=== PATIENT | male | born 1980 | race African-American/Black ===

== ENCOUNTER 2019-07-20 07:20 | Emergency (ER) | payer OTHER ==
[2019-07-20 08:06] LABS: #Eosinphils 0.1 thou/uL (0.0-0.7); #Lymphocytes 1.3 thou/uL (1.20-3.40); #Monocytes 0.9 thou/uL (0.11-0.59); #Neutrophils 6.1 thou/uL (1.40-6.50); %Basophils 0.6 % (0.0-1.0); %Lymphocytes 15.5 % (21.0-51.0); %Neutrophils 71.9 % (42.0-75.0); Hemoglobin 15.1 g/dL (14.0-18.0); Mean Corpuscular HGB CONC 33.7 g/dL (32.0-36.0); Mean Corpuscular Hemoglobin 32.3 pg (27.0-31.0); Mean Corpuscular Volume 95.8 fL (78.0-98.0); Mean Platelet Volume 7.4 fL (7.4-10.4); Platelet Count 286 thou/uL (130-400); RBC Distribution Width 11.9 % (11.5-14.5); Red Blood Cell (RBC) Count 4.68 mill/uL (4.70-6.10); White Blood Cell (WBC) Count 8.5 thou/uL (4.8-10.8)
[2019-07-20 08:30] LABS: ALT (SGPT) 16 U/L (8-55); AST (SGOT) 19 U/L (5-34); Albumin 4.5 g/dL (3.5-5.0); Alkaline Phosphatase 104 U/L (40-110); Anion Gap 10 mmol/L (10-20); BUN (Urea Nitrogen) 11 mg/dL (8.9-20.6); Bilirubin, Total 0.4 mg/dL (0.2-1.2); Calc. Creatinine Clearance 0 mL/min (70-130); Calcium 9.9 mg/dL (7.8-10.44); Carbon Dioxide 32 mmol/L (22-29); Chloride 102 mmol/L (98-107); Estimated GFR-MDRD Greater than 90; Globulin 2.4 g/dL (2.4-3.5); Potassium 4.4 mmol/L (3.5-5.1); Protein, Total 6.9 g/dL (6.0-8.3); Sodium 140 mmol/L (136-145)
[2019-07-20 08:37] LABS: Glucose 56 mg/dL (70-105)
[2019-07-20 09:30] LABS: Bilirubin Negative (Negative); Blood, Urine Negative (Negative); Clarity Clear (Clear); Glucose, Urine (Dipstick) 30 mg/dL (Negative); Leukocyte Negative Leu/uL (Negative); Nitrite Negative (Negative); Protein, Urine (Dipstick) Negative (Neg-Trace); Urobilinogen Normal mg/dL (Less than 2)
== END 2019-07-20 09:50 | disposition home or self-care (01) ==
LOC: ERS 07:20
DX: E10.649 Type 1 diabetes mellitus with hypoglycemia without coma (principal); K21.9 Gastro-esophageal reflux disease without esophagitis; I10 Essential (primary) hypertension; Z79.899 Other long term (current) drug therapy
CPT/HCPCS: 36415; 36416; 80053; 81003; 85025; 99285

== ENCOUNTER 2020-04-17 18:56 | Emergency (ER) | payer OTHER ==
[2020-04-17] MEDS ORDERED: Ondansetron ODT 4 MG TAB ONE (20:29)
== END 2020-04-17 22:05 | disposition home or self-care (01) ==
LOC: ERS 18:56
DX: R11.2 Nausea with vomiting, unspecified (principal); Z79.4 Long term (current) use of insulin; K21.9 Gastro-esophageal reflux disease without esophagitis; E10.9 Type 1 diabetes mellitus without complications; I10 Essential (primary) hypertension; F17.210 Nicotine dependence, cigarettes, uncomplicated
CPT/HCPCS: 99283; Q0162

== ENCOUNTER 2022-01-15 16:26 | Inpatient (IN) | payer BC ==
[2022-01-15] MEDS ORDERED: Ondansetron PF 4 MG/2 ML Vial ONE ×3 (16:46→23:24)
[2022-01-15 17:06] LABS: #Lymphocytes 1.7 thou/uL (1.20-3.40); #Monocytes 0.9 thou/uL (0.11-0.59); #Neutrophils 11.5 thou/uL (1.40-6.50); %Eosinophils 0.1 % (0.0-10.0); %Lymphocytes 12.3 % (21.0-51.0); %Monocytes 6.6 % (0.0-10.0); Hemoglobin 15.6 g/dL (14.0-18.0); Mean Corpuscular HGB CONC 33.8 g/dL (32.0-36.0); Mean Corpuscular Hemoglobin 32.7 pg (27.0-31.0); Mean Corpuscular Volume 96.7 fL (78.0-98.0); Mean Platelet Volume 7.9 fL (7.4-10.4); Platelet Count 276 thou/uL (130-400); RBC Distribution Width 11.7 % (11.5-14.5); Red Blood Cell (RBC) Count 4.77 mill/uL (4.70-6.10); White Blood Cell (WBC) Count 14.2 thou/uL (4.8-10.8)
[2022-01-15 17:27] LABS: ALT (SGPT) 21 U/L (8-55); AST (SGOT) 20 U/L (5-34); Albumin 4.8 g/dL (3.5-5.0); Alkaline Phosphatase 139 U/L (40-110); Anion Gap 22 mmol/L (10-20); BUN (Urea Nitrogen) 23 mg/dL (8.9-20.6); Bilirubin, Total 0.8 mg/dL (0.2-1.2); Calc. Creatinine Clearance 0 mL/min (70-130); Carbon Dioxide 22 mmol/L (22-29); Chloride 95 mmol/L (98-107); Estimated GFR 53; Globulin 2.7 g/dL (2.4-3.5); Potassium 4.4 mmol/L (3.5-5.1); Protein, Total 7.5 g/dL (6.0-8.3); Sodium 135 mmol/L (136-145)
[2022-01-15 17:36] LABS: Glucose 639 mg/dL (70-105)
[2022-01-15] MEDS ORDERED: Insulin Regular 300 UNITS/3 ML VIAL ONE ×3 (18:53→22:57)
[2022-01-15] MEDS ORDERED: NS 0.9% w/ 20 MEQ KCL 1,000 ML ONE (20:22)
[2022-01-15] MEDS ORDERED: Dextrose 50% Abboject 50 ML SYRINGE SLOW IVP PRN (20:24)
[2022-01-15] MEDS ORDERED: Insulin Regular 300 UNITS/3 ML VIAL IVP SCH (20:30)
[2022-01-15] MEDS ORDERED: HUMULIN R 100 UNITS in Sodium Chloride 0.9% 100 ML IVPB SCH (20:30)
[2022-01-15] MEDS ORDERED: NS 0.9% w/ 20 MEQ KCL 1,000 ML/1,000 ML BAG IV PRN ×2 (20:30)
[2022-01-15] MEDS ORDERED: Dextrose 5% in Water 1,000 ML IV PRN (20:30)
[2022-01-15] MEDS ORDERED: ADD ELECTROLYTE REPLACEMENT SET TO PROFILE FS SCH (20:30)
[2022-01-15] MEDS ORDERED: Sodium Chloride 0.9% 1,000 ML IV PRN ×4 (20:30)
[2022-01-15] MEDS ORDERED: Dextrose 5 %-0.45 % NaCl 1,000 ML IV PRN (20:30)
[2022-01-15] MEDS ORDERED: INSULIN REGULAR IN 0.9 % NACL 100 UNIT/100 ML BAG ONE (20:34)
[2022-01-15 20:56] LABS: Actual Bicarbonate (HCO3v) 23 mEq/L (22-28); Analyzer IN Cardio ER; Base Excess -3.6 mEq/L (-2.0 to +3.0); Calcium, Ionized (venous) 1.16 mmol/L (1.16-1.32); Chloride (VBG) 104 mmol/L (98-106); Hemoglobin (Hb) 15.4 g/dL (13.2-17.3); Potassium (VBG) 3.94 mmol/L (3.70-5.30); Sodium 139.4 mmol/L (133-146); pH (venous) 7.32 (7.32-7.43)
[2022-01-15 21:38] LABS: Anion Gap 24 mmol/L (10-20); BUN (Urea Nitrogen) 24 mg/dL (8.9-20.6); Calc. Creatinine Clearance 0 mL/min (70-130); Carbon Dioxide 22 mmol/L (22-29); Chloride 94 mmol/L (98-107); Estimated GFR 53; Potassium 4.6 mmol/L (3.5-5.1); Sodium 135 mmol/L (136-145)
[2022-01-15] MEDS ORDERED: Ondansetron PF 4 MG/2 ML Vial IVP PRN (21:53)
[2022-01-15] MEDS ORDERED: Acetaminophen 325 MG TAB PO PRN (21:53)
[2022-01-15 22:15] LABS: Glucose 316 mg/dL (70-105)
[2022-01-16] MEDS: D5 1/2 NS w/20 mEq KCL 1,000 ML IV PRN ×2 (01:21→04:53)
[2022-01-16 01:24] LABS: Phosphorus 3.2 mg/dL (2.3-4.7)
[2022-01-16 03:43] VITALS: BMI 22.6
[2022-01-16 04:08] LABS: Hemoglobin A1c 9.3 % (4.0-6.0)
[2022-01-16 04:21] LABS: Anion Gap 14 mmol/L (10-20); BUN (Urea Nitrogen) 17 mg/dL (8.9-20.6); Calc. Creatinine Clearance 84 mL/min (70-130); Calcium 8.4 mg/dL (7.8-10.44); Carbon Dioxide 22 mmol/L (22-29); Chloride 108 mmol/L (98-107); Estimated GFR 89; Glucose 224 mg/dL (70-105); Magnesium 1.9 mg/dL (1.6-2.6); Potassium 4.1 mmol/L (3.5-5.1); Sodium 140 mmol/L (136-145)
[2022-01-16 04:22] LABS: #Lymphocytes 1.4 thou/uL (1.20-3.40); #Monocytes 0.9 thou/uL (0.11-0.59); #Neutrophils 10.3 thou/uL (1.40-6.50); %Eosinophils 0.1 % (0.0-10.0); %Lymphocytes 10.9 % (21.0-51.0); %Monocytes 7.3 % (0.0-10.0); %Neutrophils 81.8 % (42.0-75.0); Hemoglobin 13.4 g/dL (14.0-18.0); Mean Corpuscular HGB CONC 35.1 g/dL (32.0-36.0); Mean Corpuscular Hemoglobin 33.3 pg (27.0-31.0); Mean Corpuscular Volume 95.1 fL (78.0-98.0); Mean Platelet Volume 7.7 fL (7.4-10.4); Platelet Count 235 thou/uL (130-400); RBC Distribution Width 11.7 % (11.5-14.5); Red Blood Cell (RBC) Count 4.01 mill/uL (4.70-6.10); White Blood Cell (WBC) Count 12.7 thou/uL (4.8-10.8)
[2022-01-16 04:24] LABS: Phosphorus 1.4 mg/dL (2.3-4.7)
[2022-01-16] MEDS ORDERED: Magnesium 2 GM/50 ML(in water) 2 GM in Premix Bag 1 BAG IVPB SCH (04:30)
[2022-01-16] MEDS ORDERED: Electrolyte Replacement Protocol FS PRN (04:30)
[2022-01-16 04:33] VITALS: TEMP 98.4
[2022-01-16] MEDS: PHOS-NAK 1 PKT PACK PO SCH ×2 (04:54→08:35)
[2022-01-16 06:07] LABS: Bacteria/HPF None Seen HPF (None Seen); Bilirubin Negative (Negative); Blood, Urine Negative (Negative); Clarity Clear (Clear); Glucose, Urine (Dipstick) Greater than 1000 mg/dL (Negative); Ketone, Urine 20 mg/dL (Negative); Leukocyte Negative Leu/uL (Negative); Nitrite Negative (Negative); Protein, Urine (Dipstick) Negative (Neg-Trace); RBC/HPF 0-3 HPF (0-3); Specific Gravity, Urine 1.029 (1.002-1.036); Squamous Epithelial 0-3 HPF (0-3); Urobilinogen Normal mg/dL (Less than 2); WBC/HPF 0-3 HPF (0-3)
[2022-01-16 06:12] LABS: Urine Culture Reflex No No
[2022-01-16 07:52] LABS: Anion Gap 12 mmol/L (10-20); BUN (Urea Nitrogen) 14 mg/dL (8.9-20.6); Calc. Creatinine Clearance 91 mL/min (70-130); Calcium 8.2 mg/dL (7.8-10.44); Carbon Dioxide 22 mmol/L (22-29); Chloride 107 mmol/L (98-107); Estimated GFR 98; Glucose 126 mg/dL (70-105); Potassium 4.2 mmol/L (3.5-5.1); Sodium 137 mmol/L (136-145)
[2022-01-16] MEDS ORDERED: Heparin 5,000 UNITS/ML VIAL SC SCH (09:00)
[2022-01-16 11:20] LABS: Anion Gap 14 mmol/L (10-20); BUN (Urea Nitrogen) 13 mg/dL (8.9-20.6); Calc. Creatinine Clearance 83 mL/min (70-130); Calcium 8.5 mg/dL (7.8-10.44); Carbon Dioxide 24 mmol/L (22-29); Chloride 104 mmol/L (98-107); Estimated GFR 88; Glucose 213 mg/dL (70-105); Potassium 4.3 mmol/L (3.5-5.1); Sodium 138 mmol/L (136-145)
== END 2022-01-16 14:27 | disposition home or self-care (01) | DRG 638 ==
LOC: ERS 16:26 → IMCU/EMU 21:34
PROVIDERS: ADMIT Internal Medicine; ATTEND Internal Medicine
DX: E10.10 Type 1 diabetes mellitus with ketoacidosis without coma (principal); N17.9 Acute kidney failure, unspecified; Z20.822 Contact with and (suspected) exposure to COVID-19; I10 Essential (primary) hypertension; F17.210 Nicotine dependence, cigarettes, uncomplicated; D72.829 Elevated white blood cell count, unspecified; Z79.899 Other long term (current) drug therapy; Z79.4 Long term (current) use of insulin; Z98.890 Other specified postprocedural states; Z83.3 Family history of diabetes mellitus
CPT/HCPCS: 36415; 36416; 80048; 80053; 82010; 82805; 83036; 83735; 83930; 84100; 85025; J1815; J2405; J3475; J3480; J7050; U0003; U0005

== ENCOUNTER 2022-12-28 06:58 | Emergency (ER) | payer BC ==
[2022-12-28 07:48] LABS: #Monocytes 0.6 thou/uL (0.11-0.59); #Neutrophils 3.7 thou/uL (1.40-6.50); %Basophils 0.5 % (0.0-1.0); %Eosinophils 0.5 % (0.0-10.0); %Lymphocytes 25.6 % (21.0-51.0); %Monocytes 10.3 % (0.0-10.0); %Neutrophils 63.1 % (42.0-75.0); Hematocrit 46.2 % (42.0-52.0); Hemoglobin 16.1 g/dL (14.0-18.0); Mean Corpuscular HGB CONC 34.8 g/dL (32.0-36.0); Mean Corpuscular Hemoglobin 31.3 pg (27.0-31.0); Mean Corpuscular Volume 89.9 fl (78.0-98.0); Mean Platelet Volume 9.8 fL (7.4-10.4); Platelet Count 304 10x3/uL (130-400); RBC Distribution Width 11.6 % (11.5-14.5); Red Blood Cell (RBC) Count 5.14 mill/uL (4.70-6.10); White Blood Cell (WBC) Count 5.9 10x3/uL (4.8-10.8)
[2022-12-28 08:11] LABS: Actual Bicarbonate (HCO3v) 23.6 mEq/L (22-28); Base Excess -4.3 mEq/L (-2.0 to +3.0); Calcium, Ionized (venous) 1.18 mmol/L (1.16-1.32); Chloride (VBG) 104 mmol/L (98-106); Hematocrit-VBG 43 % (42.0-52.0); Hemoglobin (Hb) 14.7 g/dL (13.2-17.3); Potassium (VBG) 3.67 mmol/L (3.70-5.30); pH (venous) 7.253 (7.32-7.43)
[2022-12-28 08:12] LABS: ALT (SGPT) 25 U/L (8-55); AST (SGOT) 21 U/L (5-34); Albumin 4.7 g/dL (3.5-5.0); Alkaline Phosphatase 145 U/L (40-110); Anion Gap 12 mmol/L (10-20); BUN (Urea Nitrogen) 15 mg/dL (8.9-20.6); Bilirubin, Total 0.7 mg/dL (0.2-1.2); Calc. Creatinine Clearance 0 mL/min (70-130); Carbon Dioxide 26 mmol/L (22-29); Chloride 99 mmol/L (98-107); Estimated GFR 69; Globulin 3.2 g/dL (2.4-3.5); Lipase 25 U/L (8-78); Magnesium 2.2 mg/dL (1.6-2.6); Potassium 3.8 mmol/L (3.5-5.1); Protein, Total 7.9 g/dL (6.0-8.3); Sodium 133 mmol/L (136-145)
[2022-12-28 08:18] LABS: Glucose 466 mg/dL (70-105)
[2022-12-28 08:21] LABS: Bacteria/HPF None Seen HPF (None Seen); Bilirubin Negative (Negative); Blood, Urine Negative (Negative); CAUTI Indications for Culture Pelvic or flank pain; Clarity Clear (Clear); Glucose, Urine (Dipstick) Greater than 1000 mg/dL (Negative); Ketone, Urine Negative (Negative); Leukocyte Negative Leu/uL (Negative); Nitrite Negative (Negative); Protein, Urine (Dipstick) Negative (Neg-Trace); RBC/HPF None Seen HPF (0-3); Specific Gravity, Urine 1.032 (1.002-1.036); Squamous Epithelial None Seen HPF (0-3); Urobilinogen Normal mg/dL (Less than 2); WBC/HPF 0-3 HPF (0-3)
[2022-12-28 08:23] LABS: Urine Culture Reflex No No
[2022-12-28] MEDS ORDERED: Insulin Regular 300 UNITS/3 ML VIAL ONE (08:45)
[2022-12-28 09:15] LABS: Analyzer IN Cardio ER; Base Excess -4.5 mEq/L (-2.0 to +3.0); Calcium, Ionized (venous) 1.11 mmol/L (1.16-1.32); Chloride (VBG) 106 mmol/L (98-106); Hematocrit-VBG 43 % (42.0-52.0); Hemoglobin (Hb) 14.7 g/dL (13.2-17.3); Potassium (VBG) 3.76 mmol/L (3.70-5.30); Sodium 137.8 mmol/L (133-146); pH (venous) 7.335 (7.32-7.43)
== END 2022-12-28 09:30 | disposition home or self-care (01) ==
LOC: ERS 06:58
DX: E11.65 Type 2 diabetes mellitus with hyperglycemia (principal); K21.9 Gastro-esophageal reflux disease without esophagitis; I10 Essential (primary) hypertension; F17.210 Nicotine dependence, cigarettes, uncomplicated
CPT/HCPCS: 36415; 36416; 80053; 81001; 82010; 82805; 83690; 83735; 85025; 99284; J1815

== ENCOUNTER 2025-03-02 21:18 | Emergency (ER) | payer BC ==
[2025-03-03] MEDS ORDERED: Amoxicillin/Potassium Clav 875 MG TAB ONE (00:40)
[2025-03-03] MEDS ORDERED: Boostrix 0.5 ML (Tdap) VIAL (>/=7 yrs of age) ONE (00:40)
== END 2025-03-03 01:13 | disposition home or self-care (01) ==
LOC: ERS 21:18
DX: S01.85XA Open bite of other part of head, initial encounter (principal); E10.9 Type 1 diabetes mellitus without complications; Z79.4 Long term (current) use of insulin; W54.0XXA Bitten by dog, initial encounter
CPT/HCPCS: 90471; 90715